=== PATIENT | female | born 2000 | race Caucasian/White ===

== ENCOUNTER 2024-02-10 18:01 | Emergency (ER) | payer BC, SELFPAY ==
[2024-02-10 18:15] VITALS: BP 111/75; PULSE 88; RESP 16; TEMP 37.1; O2SAT 100
--- NOTE | 2024-02-10 18:52 | ED.EXTPRO ---
HPI - Extremity Problem General Chief complaint: Extremity Problem,Nontraumatic Stated complaint: INFECTED FINGER Time Seen by Provider: 02/10/24 18:45 Source: patient and RN notes reviewed Mode of arrival: ambulatory Limitations: no limitations History of Present Illness HPI Narrative: Patient presents today complaining of pain to the right 3rd finger. States she may have scraped it 3-4 days ago and believes now it may be infected. Currently rates her pain 3/10. No [id number] treatment prior to arrival. Related Data Allergies Allergy/AdvReac Type Severity Reaction Status Date / Time No Known Allergies Allergy Verified 02/10/24 18:49 Review of Systems Review of Systems: CONSTITUTIONAL: Denies body aches, fever, chills, or sweats. EYES: Denies visual changes, redness, or discharge. ENT: Denies rhinorrhea, congestion, sore throat, or otalgia. CARDIOVASCULAR: Denies chest pain, palpitations, or edema. RESPIRATORY: Denies cough or dyspnea. GASTROINTESTINAL: Denies abdominal pain, nausea, vomiting, or diarrhea. GENITOURINARY: Denies dysuria or hematuria. SKIN: Denies rash, itching, or wounds. MUSCULOSKELETAL: + right 3rd finger pain NEUROLOGIC: Denies headache, numbness, tingling, or weakness. PSYCH: Denies depression or anxiety. PMFSH Comments At time of signature, I have reviewed and agree with nursing past medical, surgical, social and family history unless otherwise noted. Please see nursing chart for further information. There is no relevant family history pertinent to the presenting complaint Exam Narrative: GENERAL: Well-appearing, well-nourished, and in no acute distress. HEAD: Normocephalic, atraumatic. EYES: EOMI. No redness or drainage. Conjunctivae normal. ENT: Mucous membranes pink and moist. NECK: Normal AROM. CHEST: No respiratory distress. EXTREMITIES: Right 3rd finger: Tiny scab surrounded by erythema and mild edema to the palmar aspect of the PIP. Tender to palpation. No fluctuance or induration noted. Increased pain with range of motion of the finger. Distal sensation intact. Capillary refill normal. SKIN: Warm, dry, no rash. Capillary refill normal. Normal skin turgor. NEURO: No focal deficits. Alert and oriented x3. Gait steady. PSYCH: Normal affect. No signs of depression or anxiety. Course Course Level of Care: Express Care Visit Vital Signs Vital signs: Vital Signs Temperature 98.8 F 02/10/24 18:15 Pulse Rate 88 02/10/24 18:15 Respiratory Rate 16 02/10/24 18:15 Blood Pressure 111/75 02/10/24 18:15 Pulse Oximetry 100 02/10/24 18:15 Temperature 98.8 F 02/10/24 18:15 Pulse Rate 88 02/10/24 18:15 Respiratory Rate 16 02/10/24 18:15 Blood Pressure 111/75 02/10/24 18:15 Pulse Oximetry 100 02/10/24 18:15 Reviewed MDM - Extremity (Nontraumatic) MDM Narrative Medical decision making narrative: Patient seems to have a bit of cellulitis of the finger and will be treated with Keflex. Anticipatory guidance given. Differential Diagnosis Differential diagnosis: Likely cellulitis and other (Abscess, abrasion) Critical Care Time Critical Care Time Critical Care Time: No Discharge Plan Discharge Clinical Impression: Cellulitis of finger of right hand Patient Disposition: Home, Self-Care Condition: Stable Instructions: Antibiotic Form, Cellulitis (ED) Additional Instructions: Please take the Keflex as prescribed until gone. Wash your finger with soap and water daily. As discussed, if you develop a fever or red streaking up your hand or arm, please go to the ER immediately for further evaluation and treatment. Take Tylenol or ibuprofen for pain and inflammation. Prescriptions: New cephalexin 500 mg capsule 500 mg PO Q6H 7 Days Qty: 28 0RF Follow-up/Referrals: PHYSICIAN,DOCKING PILOT [Primary Care Provider] - Time of Disposition: 18:57
== END 2024-02-10 19:01 | disposition home or self-care (01) ==
PROVIDERS: Emergency Provider Nurse Practitioner
DX: L03.011 Cellulitis of right finger (principal)
CPT/HCPCS: 99213; G0463

== ENCOUNTER 2024-09-17 15:05 | Emergency (ER) | payer OTHER, BC, SELFPAY ==
--- NOTE | ~2024-09-17 | XR_ITS ---
EXAMINATION: XR finger 4th LT min 2V DATE: 09/17/2024 15:52 INDICATION: Left hand fourth digit injury and pain. TECHNIQUE: 4 views of left hand fourth digit were obtained. COMPARISON: None. FINDINGS: Alignment is normal. No fracture. Joint spaces are normal. IMPRESSION: 1. No fracture. Reviewed, dictated and finalized at location A. PROGRAMMER IMPRESSION: 1. No fracture.
[2024-09-17 15:15] VITALS: BP 127/90; PULSE 75; RESP 16; TEMP 36.9; O2SAT 100
--- NOTE | 2024-09-17 15:42 | ED.UPPEXIN ---
HPI - Extremity Injury (Upper) General Chief Complaint: Extremity Injury, Upper Stated Complaint: Injured Left Hand Time Seen by Provider: 09/17/24 15:35 Source: patient and RN notes reviewed Mode of arrival: ambulatory Limitations: no limitations History of Present Illness HPI narrative: Patient presents today complaining of small lacerations to her left 1st and 2nd fingers that were sustained at work today. She was working to open a package of avocado with a bread knife when it slipped cutting her fingers. She also has some bruising to her 4th finger but is unsure of how that happened during this injury as well. Denies numbness or tingling in the fingers. Pain increases in the 4th finger with movement. She is up-to-date on tetanus vaccine Related Data Home Medications Medication Instructions Recorded Confirmed No Home Medications 09/17/24 09/17/24 Allergies Allergy/AdvReac Type Severity Reaction Status Date / Time No Known Allergies Allergy Verified 09/17/24 15:20 Review of Systems Review of Systems: CONSTITUTIONAL: Denies body aches, fever, chills, or sweats. EYES: Denies visual changes, redness, or discharge. ENT: Denies rhinorrhea, congestion, sore throat, or otalgia. CARDIOVASCULAR: Denies chest pain, palpitations, or edema. RESPIRATORY: Denies cough or dyspnea. GASTROINTESTINAL: Denies abdominal pain, nausea, vomiting, or diarrhea. GENITOURINARY: Denies dysuria or hematuria. SKIN: Denies rash, itching, or wounds. MUSCULOSKELETAL: Finger bruising and lacerations NEUROLOGIC: Denies headache, numbness, tingling, or weakness. PSYCH: Denies depression or anxiety. PMFSH Comments At time of signature, I have reviewed and agree with nursing past medical, surgical, social and family history unless otherwise noted. Please see nursing chart for further information. There is no relevant family history pertinent to the presenting complaint Exam Narrative: GENERAL: Well-appearing, well-nourished, and in no acute distress. HEAD: Normocephalic, atraumatic. EYES: EOMI. No redness or drainage. Conjunctivae normal. ENT: Mucous membranes pink and moist. NECK: Normal AROM. CHEST: No respiratory distress. EXTREMITIES: Left fingers: 1st finger has a 0.5 partial-thickness linear laceration to the distal tip. Second finger less than 0.5 partial-thickness linear laceration to the distal phalanx. Fourth finger ecchymosis at the D IP with tenderness to this area as well. No edema. Pain with range of motion. Distal sensation intact and capillary refill normal in all fingers. SKIN: Warm, dry, no rash. Capillary refill normal. Normal skin turgor. NEURO: No focal deficits. Alert and oriented x3. Gait steady. PSYCH: Normal affect. No signs of depression or anxiety. Course Course Level of Care: Express Care Visit Vital Signs Vital signs: Vital Signs Temperature 98.5 F 09/17/24 15:15 Pulse Rate 75 09/17/24 15:15 Respiratory Rate 16 09/17/24 15:15 Blood Pressure 127/90 09/17/24 15:15 Pulse Oximetry 100 09/17/24 15:15 Oxygen Delivery Room Air 09/17/24 15:15 Temperature 98.5 F 09/17/24 15:15 Pulse Rate 75 09/17/24 15:15 Respiratory Rate 16 09/17/24 15:15 Blood Pressure 127/90 09/17/24 15:15 Pulse Oximetry 100 09/17/24 15:15 Oxygen Delivery Room Air 09/17/24 15:15 Reviewed Procedures Laceration Laceration 1: Date: 09/17/24 Time: 16:17 Site: hand (Left 1st and 2nd fingers) Side (If applicable): left Size (cm): 0.5 Description: linear Depth: simple, single layer Local Anesthetic: none Pre-repair: wound explored and irrigated ====== Skin Level ====== Skin layer closed with: dermabond ====== Subcutaneous Layer ====== ====== Muscle Layer ====== ====== Tendon Layer ====== Dressing: Patient tolerated procedure well Orthopedic Splinting/Casting Injury #1: Splinting/Casting Date: 09/17/24 Splinting/Casting Time: 16:18 Side: left Upper Extremity Injury Location: finger (Left 4th) Upper Extremity Immobilizer: finger (other) (Metal finger splint) Pre-Procedure Neuro Vascular Exam: normal Post-Procedure Neuro Vascular Exam: normal MDM - Extremity Injury (Upper) MDM Narrative Medical decision making narrative: Xray negative. Glue used to repair 2 small lacerations. Splint applied to 4th finger. Anticipatory guidance given. Differential Diagnosis Differential diagnosis: Likely finger sprain and other (Finger fracture, contusion, laceration) Imaging Data Radiologist's impression: ITS Impressions Finger X-Ray 09/17/24 15:54 IMPRESSION: 1. No fracture. Critical Care Time Critical Care Time Critical Care Time: No Discharge Plan Discharge Clinical Impression: Finger laceration Qualifiers: Encounter type: initial encounter Finger: unspecified finger Damage to nail status: without damage Foreign body presence: without foreign body Laterality: left Qualified Code(s): S61.219A - Laceration without foreign body of unspecified finger without damage to nail, initial encounter Contusion of left ring finger Qualifiers: Encounter type: initial encounter Damage to nail status: without damage Qualified Code(s): S60.042A - Contusion of left ring finger without damage to nail, initial encounter Patient Disposition: Home, Self-Care Condition: Stable Instructions: Contusion in Adults (ED) Additional Instructions: Your lacerations have been repaired with glue. This will fall off in approximately 1 week. It is okay for you to wash your hands with the glue, but once the glue falls off, please keep covered until scabbed over. Do not submerge your hand in standing water until scabs form. Monitor for any signs of infection such as redness, swelling, increased pain or drainage comments your doctor if you note any. Your finger x-ray is negative for fracture. You have been placed in a splint for comfort and stability. Take Tylenol or ibuprofen for pain. Apply ice to the 4th finger to help with pain. Please follow-up with your employer regarding workman's compensation. Your blood pressure was elevated above 120/80 today at Urgent Care. This puts you above the threshold for follow up. Please schedule a followup visit with your personal physician as soon as possible, for further evaluation and treatment. Even blood pressure exceeding 120/80 may indicate pre-hypertension. Prescriptions: No Action No Home Medications Follow-up/Referrals: PHYSICIAN,RENTAL CAR PORTER [Primary Care Provider] - Time of Disposition: 16:21
== END 2024-09-17 16:24 | disposition home or self-care (01) ==
PROVIDERS: Emergency Provider Nurse Practitioner
DX: S61.012A Laceration without foreign body of left thumb without damage to nail, initial encounter (principal); S61.211A Laceration without foreign body of left index finger without damage to nail, initial encounter; W26.0XXA Contact with knife, initial encounter; Y99.0 Civilian activity done for income or pay; S60.042A Contusion of left ring finger without damage to nail, initial encounter
CPT/HCPCS: 12001; 29130; 73140; 99213; G0463